=== PATIENT | male | born 1955 | race Caucasian/White ===

== ENCOUNTER 2023-08-15 07:08 | Day surgery (SDC) | payer OTHER ==
[2023-08-15] MEDS ORDERED: Lidocaine 1% PF 5 ML VIAL ONE (07:57)
[2023-08-15] MEDS ORDERED: Sodium Bicarbonate 2.5 MEQ/5 ML SDV ONE (07:57)
[2023-08-15 08:53] VITALS: BP 162/85; TEMP 98.1
== END 2023-08-15 09:30 | disposition home or self-care (01) ==
LOC: CSHRAD 07:08
PROVIDERS: ATTEND Neurological Surgery
DX: M47.26 Other spondylosis with radiculopathy, lumbar region (principal); Z98.890 Other specified postprocedural states
CPT/HCPCS: 62304; 72132